=== PATIENT | female | born 2000 | race Caucasian/White ===

== ENCOUNTER 2023-09-09 10:49 | Emergency (ER) | payer OTHER, SELFPAY ==
[2023-09-09 11:12] VITALS: BP 108/74
[2023-09-09 11:35] LABS: % Basophils 0.3 % (0-2); % Eosinophils 0.2 % (0-6); % Immature Granulocytes 0.3 % (0-0.5); % Lymphocytes 17.2 % (20.5-51.1); % Monocytes 6.6 % (1.7-9.3); % Neutrophils 75.4 % (42.2-75.2); Absolute Monocytes 0.4 10^3/uL (0.1-0.6); Absolute Neutrophils 4.3 10^3/uL (1.4-6.5); Hematocrit 37.4 % (37.0-47.0); Hemoglobin 12.1 g/dL (12.0-16.0); Mean Corp Hgb Conc. 32.4 g/dL (33.0-37.0); Mean Corpuscular Hgb 21.5 pg (27.0-31.0); Mean Corpuscular Volume 66.5 fL (81.0-99.0); Mean Platelet Volume 10.8 fL (7.4-10.4); Nucleated Red Blood Cells % 0 %; Platelet Count 161 10^3/uL (130-400); Red Blood Cell Count 5.62 10^6/uL (4.20-5.40); Red Cell Dist. Width 15.8 % (11.5-14.5); White Blood Cell Count 5.7 10^3/uL (4.8-10.8)
[2023-09-09 11:56] LABS: COVID-19 Antigen Negative (Negative)
[2023-09-09 12:32] VITALS: BMI 24.0
[2023-09-09 12:35] LABS: ALT (SGPT) 30 U/L (0-35); AST (SGOT) 34 U/L (14-36); Alkaline Phosphatase 51 U/L (38-126); Blood Urea Nitrogen 15 mg/dl (7-17); Calcium 9.2 mg/dl (8.4-10.2); Carbon Dioxide 20 mmol/L (22-30); Chloride 106 mmol/L (98-107); Estimated Creatinine Clearance 119 ml/min; Glucose 109 mg/dl (70-99); Potassium 3.7 mmol/L (3.5-5.1); Sodium 135 mmol/L (135-145); Total Bilirubin 0.4 mg/dl (0.2-1.3); Total Protein 6.8 g/dl (6.3-8.2); eGFR > 60.00
[2023-09-09 12:52] VITALS: BP 113/76
[2023-09-09 13:00] VITALS: BP 120/82
--- NOTE | 2023-09-09 13:08 | ED.GENMED ---
History of Present Illness
General
Chief Complaint: Abdominal Symptoms
Time Seen by Provider: 09/09/23 12:38
Travel History
Have you had any contact with someone who has COVID-19?: No
Do you have any symptoms of coronavirus? Fever > 100 degrees, chills, cough, shortness of breath, sore throat, loss of taste or smell, muscle aches, or headache?: No
History of Present Illness
History of Present Illness:
23-year-old otherwise healthy female presents to the emergency department for evaluation of intermittent fevers as well as nausea and vomiting and mild cough ongoing for the past 3 days. No hematemesis or diarrhea at this point. Reporting mild
generalized abdominal pain. Denies any associated shortness of breath or chest pain. She is concerned about bilateral leg cramping and generalized weakness making it difficulty to ambulate. She feels dizzy when she ambulates. Has not been able
to tolerate any p.o. fluids this morning
Past History
Past History
ED Past Medical History: None
ED Past Surgical History: None
Social History
Tobacco: Non-smoker
Alcohol: None
Personal: Single
Living: with family
Employment: Student
Family History
Family History: Other (Noncontributory)
Review of Systems
Review of Systems
Allergies reviewed?: Yes
All Other Systems: ROS reviewed and negative except as documented in HPI and ROS
Phy Exam
Physical Exam
Physical Exam:
GEN: Well appearing, NAD, WDWN
Eyes: PERRLA, EOMs intact, no scleral icterus
HENT: NCAT, oral mucosa moist
Lungs: CTAB, no wheezes, rales, rhonchi, normal chest wall excursion
Cardiac: RRR, no M/R/G, no peripheral edema. Radial pulses 2+ bilat
Abdomen: S, NT, ND, NABS, no masses or hepatosplenomegaly
Neuro: AO x 3
MSK: No gross deformity or ecchymosis. No edema. No digital clubbing
Skin: No rashes, petechiae. Normal color, no pallor or jaundice.
Psych: Calm, cooperative, proper hygiene
Course
Orders/Labs/Results
Orders:
Orders
09/09/23 11:23
COVID-19 Antigen Urgent
Source: Nasal Swab
Complete Blood Count/With Diff Urgent
Comprehensive Metabolic Panel Urgent
Creatine Phosphokinase Urgent
Comment: ADD ON
Influenza A+B Rapid Molecular Urgent
REKHA Source: Nasal Swab
Specimen Description:
09/09/23 13:06
0.9% Sodium Chloride 1000 ml [Nss] 1,000 ml IV BOLUS
09/09/23 13:07
Add On- LAB Urgent
Tests Added?: CPK
09/09/23 13:08
Dextrose 5%/0.9%Sodchl 500 ml [D5/0.9% Sodium Chloride] 250 ml IV 250 mls/hr
Abnormal Lab Results
09/09/23
11:23
RBC 5.62 H 10^6/uL
(4.20-5.40)
MCV 66.5 L fL
(81.0-99.0)
MCH 21.5 L pg
(27.0-31.0)
MCHC 32.4 L g/dL
(33.0-37.0)
RDW 15.8 H %
(11.5-14.5)
MPV 10.8 H fL
(7.4-10.4)
Absolute Lymphs (auto) 1.0 L 10^3/uL
(1.2-3.4)
Neutrophils % 75.4 H %
(42.2-75.2)
Lymphocytes % 17.2 L %
(20.5-51.1)
Carbon Dioxide 20 L mmol/L
(22-30)
Glucose 109 H mg/dl
(70-99)
09/09/23 11:23
09/09/23 11:23
Vital Signs
Initial and Last Documented VS:
Initial Vital Signs
Temp Pulse Resp BP Pulse Ox
99.2 F 98 18 108/74 97
09/09/23 11:12 09/09/23 11:12 09/09/23 11:12 09/09/23 11:12 09/09/23 11:12
Last Documented Vital Signs
Temp Pulse Resp BP Pulse Ox
98.5 F 85 22 119/78 96
09/09/23 12:32 09/09/23 15:21 09/09/23 15:21 09/09/23 15:21 09/09/23 13:15
MDM/Problems Addressed
MDM/Problems Addressed:
Patient's labs are reassuring including negative CPK which rules out myositis. She is positive for influenza A. She was rehydrated with 1 L normal saline and 250 mL of D5 normal saline due to mild decrease in bicarbonate and the likelihood for
mild ketosis. Clinically doing well, abdominal exam is benign, no indication for abdominal imaging at this point. Discussed supportive care, will discharge with antiemetics
*Critical Care Note
Total Time (30-74mins, 75-104mins- exclusive of procedures): Not Applicable
ED Attending Note
-
Portions of this chart may have been created with voice recognition software.� Occasional wrong word or��sound alike� substitutions may have occurred due to the inherent limitations of voice recognition software.
Discharge Plan
Departure
Patient Disposition: Home (Routine Discharge)
Date of Disposition: 09/09/23
Time of Disposition: 15:38
Patient with high blood pressure during this ER visit?: No
Discharge Problem:
Influenza A, Nausea & vomiting
Instructions: Nausea and Vomiting, Adult (DC)
Prescriptions:
New
ondansetron 4 mg tablet,disintegrating
4 mg PO TIDPRN PRN (Reason: nausea/vomiting) Qty: 10 0RF
No Action
levonorgestrel-ethinyl estrad [Sronyx] 1 EACH tablet
1 tab PO DAILY
valacyclovir 500 MG tablet
500 mg PO DAILY
Referrals:
Cl Lott MD [Family Provider] -
Stand Alone Forms: Return to Work
Interventions
Interventions:
*Risk Screen - Suicide Last Done: 09/09/23 11:12
*General Assessment Last Done: 09/09/23 11:12
*Neglect/Abuse Screening Last Done: 09/09/23 11:12
ED- Fall Risk Assessment Last Done: 09/09/23 12:32
*ED COVID-19 Vaccine History Last Done: 09/09/23 11:12
UQ-Htxfgo-Ssczauyylt Assessment Last Done: 09/09/23 12:32
Discharge Date and Time
Print Language: SLOVENIAN
[2023-09-09] MEDS: NSS 1000 IV (13:57)
[2023-09-09] MEDS: D5/0.9% SODIUM CHLORIDE 250 IV (13:57)
[2023-09-09 14:42] LABS: Creatine Phosphokinase 68 U/L (30-135)
[2023-09-09 15:21] VITALS: BP 119/78
[2023-09-09 15:42] VITALS: BP 119/78
== END 2023-09-09 15:44 | disposition home or self-care (01) ==
LOC: EMR 10:49
PROVIDERS: Student in an Organized Health Care Education/Training Program; EMERGENCY PHYSICIAN Emergency Medicine; FAMILY PHYSICIAN Family Medicine
DX: J10.1 Influenza due to other identified influenza virus with other respiratory manifestations (principal); R50.9 Fever, unspecified
CPT/HCPCS: 99283; 96360; 80053; 82550; 85025; 87502; 87811

== ENCOUNTER 2024-12-08 23:08 | Emergency (ER) | payer OTHER, SELFPAY ==
[2024-12-08 23:16] VITALS: BP 121/86
[2024-12-09] VITALS (8 sets, daily range): BP systolic 103–135; BP diastolic 65–102
--- NOTE | 2024-12-09 00:55 | ED.GENMED ---
History of Present Illness
<Talia Atwood PA-C - Last Filed: 12/09/24 06:54>
General
Chief Complaint: Abdominal Symptoms
Source: patient
Exam Limitations: none
Time Seen by Provider: 12/09/24 00:53
Nursing documentation reviewed up to this point in time: agreed with
History of Present Illness
History of Present Illness:
Note:
CHIEF COMPLAINT(S)
Ongoing diarrhea for several weeks.
HISTORY OF PRESENT ILLNESS
The patient is a 24-year-old female with a past medical history of anxiety, bipolar disorder, anemia who presents today with ongoing diarrhea persisting for the past few weeks. The patient reports experiencing several episodes daily, accompanied by
occasional rectal pain during defecation but denies any significant abdominal pain. She denies any back pain or flank pain. The patient also reports unintentional weight loss for the past 2 weeks she is not sure how many pounds she lost but she
feels as though her close have been fitting looser. Historically, the patient experienced a similar episode a few years ago, which involved vomiting and was suggested to be related to gastrointestinal issues, potentially exacerbated by COVID-19,
though no definitive diagnosis was established at that time. Recently, she reported difficulty eating and a noted exacerbation of symptoms after consuming certain foods, particularly after eating out, which included consuming a small amount of
vegetables and chips. The patient also experiences nausea and vomiting, which started acutely today, complicating her ability to keep down even fluids. There is no history of recent travel or medication changes that might account for these symptoms.
The patient denies any urinary symptoms, bleeding, dark tarry stools, or recent surgery in the abdomen. There is no significant history of similar gastrointestinal conditions in the immediate family, though there is a family member with a past
suspicion of diverticulitis that was later confirmed as a kidney condition and an uncle who had colon cancer at the age of 40. There is also family history of gluten intolerance.
SOCIAL DETERMINANTS AFFECTING HEALTH
The patient faces dietary challenges attributed to food sensitivities and family history of gluten intolerance
REVIEW OF SYSTEMS
- Gastrointestinal: Ongoing diarrhea with rectal pain, nausea, vomiting, and unintentional weight loss over the last two weeks.
- Appetite: Reported difficulty with dietary intake, exacerbated by certain foods.
- Constitutional: Noted weight loss over the last two weeks.
See HPI
PHYSICAL EXAM
- Nursing notes reviewed and vital signs reviewed.
General: Patient is well appearing and in no acute distress; non-toxic
Skin: Warm and dry, no rashes or lesions
Head: Normocephalic, atraumatic
Eyes: Sclera non-icteric. EOMs intact.
Cardiac: Regular rate and rhythm, no murmurs
Peripheral Vascular: No extremity swelling or edema
Pulm: Normal respiratory effort, no wheezes, rales, or
Abdomen: Mild left-sided abdominal tenderness to palpation abdomen soft, nondistended, no palpable masses, normoactive bowel sounds
Neuro: CN II-XII intact, no focal neurologic deficits.
Psychiatric: Appropriate mood and affect.
PROBLEM LIST
- Acute: Ongoing diarrhea, vomiting, nausea, unintentional weight loss.
PLAN
- Obtain a computed tomography scan to evaluate for causes such as diverticulitis and initial presentation of conditions like ulcerative colitis.
- Collect a stool sample for analysis to rule out resistant bacteria requiring antibiotics (patient was not able to provide stool sample during ER visit)
- Perform laboratory tests to assess electrolyte imbalances due to vomiting.
- Recommend follow-up with a sole inker for possible endoscopic evaluation or further testing.
- Advise dietary modifications upon stabilization to identify potential food sensitivities, considering family history of gluten intolerance.
DIFFERENTIAL DIAGNOSIS
The Differential Diagnosis includes, in no particular order and is not limited to:
1. Infectious colitis
2. Ulcerative colitis
3. Crohn�s disease
4. Irritable bowel syndrome
5. Celiac disease
6. Infectious gastroenteritis
7. Lactose intolerance
8. Pancreatitis
9. Diverticulitis
10. Small intestinal bacterial overgrowth (SIBO)
CHART REVIEW
Reviewed ER physician documentation from 09/09/2023 patient seen for intermittent nausea and vomiting as well as mild coughing, she had unremarkable workup
Reviewed endoscopy report from 10/09 patient had upper endoscopy was found to have hiatal hernia and biopsies were taken and patient was scheduled to have a gastric emptying study
MDM/disposition
The patient is a 24-year-old female with a past medical history of anxiety, bipolar disorder, anemia who presents today with ongoing diarrhea persisting for the past few weeks. Today, she had a sudden acute onset of nausea and vomiting that
persisted throughout the day and she is not able to tolerate the intake of fluids or food. She denies any significant abdominal pain or back pain. She denies any flank pain. She has no urinary symptoms. In the ER, her symptoms were treated
effectively with Zofran and Compazine and IV fluids. She did develop some mild left-sided pain which was treated with Toradol. Due to the length of time that her symptoms persisted, a CT scan was obtained which revealed bilateral acute
pyelonephritis however no evidence of hydronephrosis. This is not consistent with patient's clinical picture. Her urinalysis is negative for infection. She has no white blood cell count. She is now fever. Discussed case with ED attending who
also saw patient and recommended urology consult. Spoke with Dr. Son on-call for urology. Considering patient has no hydronephrosis, has a clean urine, normal functioning normal blood cell count, no indication for admission and recommended
treatment with Toradol as needed since there is no signs of infection in the urine. Based on urology recommendations and patient's persistent diarrhea, will hold off on antibiotics at this time. Discussed close follow-up with GI, information sent
to GI front clerk for further follow-up. Discussed with holding different food groups to see if that would help with her symptoms. Zofran sent to pharmacy. Strict return precautions discussed. Patient stable for discharge
Past History
Finnlt;Talia Atwood PA-C - Last Filed: 12/09/24 06:54>
Past History
ED Past Medical History: None
ED Past Surgical History: None
Social History
Tobacco: Non-smoker
Alcohol: None
Personal: Single
Living: with family
Employment: Student
Family History
Family History: Other (Noncontributory)
Phy Exam
<Talia Atwood PA-C - Last Filed: 12/09/24 06:54>
Physical Exam
Physical Exam:
see hpi
Course
<Talia Atwood PA-C - Last Filed: 12/09/24 06:54>
Orders/Labs/Results
Orders:
Orders
12/08/24 23:29
IV Insert/Care/Rem.- Treatment PRN
Straight cath- Treatment ONCE
Complete Blood Count/With Diff Urgent
Comprehensive Metabolic Panel Urgent
HCG, Serum Qualitative Screen Urgent
Comment: .
Lipase Urgent
Urinalysis Reflex To Culture Urgent
Date Specimen was Collected: 12/08/24
Time Specimen was Collected: 23:29
12/08/24 23:48
Test Result ONCE
12/09/24 01:03
Ondansetron Injectable [Zofran] 4 mg .ROUTE .STK-MED ONE
Ondansetron Injectable [Zofran] 4 mg IV NOW STA
12/09/24 01:05
0.9% Sodium Chloride 1000 ml [Nss] 1,000 ml IV BOLUS
12/09/24 01:17
CT Abd/pelvis W Iv Cont Urgent
Comment:
Reason For Exam: left sided ab pain
12/09/24 02:14
Urine Microscopic Reflex Cult Urgent
12/09/24 02:59
Prochlorperazine [Compazine] 5 mg IV NOW STA
12/09/24 03:04
Ketorolac [Toradol] 15 mg IV NOW STA
Abnormal Lab Results
12/09/24 12/09/24
00:46 02:14
RBC 5.73 H 10^6/uL
(4.20-5.40)
MCV 66.1 L fL
(81.0-99.0)
MCH 21.5 L pg
(27.0-31.0)
MCHC 32.5 L g/dL
(33.0-37.0)
RDW 15.9 H %
(11.5-14.5)
MPV 10.7 H fL
(7.4-10.4)
Absolute Neuts (auto) 8.3 H 10^3/uL
(1.4-6.5)
Neutrophils % 80.7 H %
(42.2-75.2)
Lymphocytes % 12.4 L %
(20.5-51.1)
Chloride 112 H mmol/L
(98-107)
Carbon Dioxide 21 L mmol/L
(22-30)
BUN 18 H mg/dl
(7-17)
Creatinine 1.1 H mg/dL
(0.6-1.0)
Glucose 100 H mg/dl
(70-99)
Urine Ketones 2+ A
(Negative)
Urine Bacteria (Reflex) Few A
(Negative)
Urine Albumin (Reflex) 2+ A
(Neg - Trace)
12/09/24 00:46
12/09/24 00:46
Vital Signs
Initial and Last Documented VS:
Initial Vital Signs
Temp Pulse BP Pulse Ox
98.2 F 84 121/86 100
12/08/24 23:16 12/08/24 23:16 12/08/24 23:16 12/08/24 23:16
Last Documented Vital Signs
Temp Pulse Resp BP Pulse Ox
98.2 F 53 12 120/68 99
12/08/24 23:16 12/09/24 06:15 12/09/24 06:15 12/09/24 06:00 12/09/24 06:15
<León Stern, DO - Last Filed: 12/09/24 05:53>
Orders/Labs/Results
Orders:
Orders
12/08/24 23:29
IV Insert/Care/Rem.- Treatment PRN
Straight cath- Treatment ONCE
Complete Blood Count/With Diff Urgent
Comprehensive Metabolic Panel Urgent
HCG, Serum Qualitative Screen Urgent
Comment: .
Lipase Urgent
Urinalysis Reflex To Culture Urgent
Date Specimen was Collected: 12/08/24
Time Specimen was Collected: 23:29
12/08/24 23:48
Test Result ONCE
12/09/24 01:03
Ondansetron Injectable [Zofran] 4 mg .ROUTE .STK-MED ONE
Ondansetron Injectable [Zofran] 4 mg IV NOW STA
12/09/24 01:05
0.9% Sodium Chloride 1000 ml [Nss] 1,000 ml IV BOLUS
12/09/24 01:17
CT Abd/pelvis W Iv Cont Urgent
Comment:
Reason For Exam: left sided ab pain
12/09/24 02:14
Urine Microscopic Reflex Cult Urgent
12/09/24 02:59
Prochlorperazine [Compazine] 5 mg IV NOW STA
12/09/24 03:04
Ketorolac [Toradol] 15 mg IV NOW STA
Abnormal Lab Results
12/09/24 12/09/24
00:46 02:14
RBC 5.73 H 10^6/uL
(4.20-5.40)
MCV 66.1 L fL
(81.0-99.0)
MCH 21.5 L pg
(27.0-31.0)
MCHC 32.5 L g/dL
(33.0-37.0)
RDW 15.9 H %
(11.5-14.5)
MPV 10.7 H fL
(7.4-10.4)
Absolute Neuts (auto) 8.3 H 10^3/uL
(1.4-6.5)
Neutrophils % 80.7 H %
(42.2-75.2)
Lymphocytes % 12.4 L %
(20.5-51.1)
Chloride 112 H mmol/L
(98-107)
Carbon Dioxide 21 L mmol/L
(22-30)
BUN 18 H mg/dl
(7-17)
Creatinine 1.1 H mg/dL
(0.6-1.0)
Glucose 100 H mg/dl
(70-99)
Urine Ketones 2+ A
(Negative)
Urine Bacteria (Reflex) Few A
(Negative)
Urine Albumin (Reflex) 2+ A
(Neg - Trace)
12/09/24 00:46
12/09/24 00:46
Vital Signs
Initial and Last Documented VS:
Initial Vital Signs
Temp Pulse BP Pulse Ox
98.2 F 84 121/86 100
12/08/24 23:16 12/08/24 23:16 12/08/24 23:16 12/08/24 23:16
Last Documented Vital Signs
Temp Pulse Resp BP Pulse Ox
98.2 F 53 12 120/68 99
12/08/24 23:16 12/09/24 06:15 12/09/24 06:15 12/09/24 06:00 12/09/24 06:15
Finnlt;Talia Atwood PA-C - Last Filed: 12/09/24 06:54>
*Pulse Oximetry
SaO2: 100
Oxygen Mode of Delivery: Room air
Patient hypoxic: no
*Critical Care Note
Total Time (30-74mins, 75-104mins- exclusive of procedures): Not Applicable
ED Attending Note
<Talia Atwood PA-C - Last Filed: 12/09/24 06:54>
-
Portions of this chart may have been created with voice recognition software.� Occasional wrong word or��sound alike� substitutions may have occurred due to the inherent limitations of voice recognition software.
<León Stern DO - Last Filed: 12/09/24 05:53>
ED Attending Note
Patient seen and examined by attending physician: Yes
ED Attending Note:
Pleasant 24-year-old female presents to the emergency department with diarrhea for the last 3 weeks. Had some vomiting today. Patient was seen in conjunction with the PA. I reviewed and agree with her history and treatment plan. I am independent
physical exam patient awake alert and oriented in no acute distress with lying on the bed. We did discuss CT scan findings and lab work. At this time patient will be discharged home. She will follow-up with urology.
Discharge Plan
Departure
Patient Disposition: Home (Routine Discharge)
Date of Disposition: 12/09/24
Time of Disposition: 06:04
Patient with high blood pressure during this ER visit?: No
Condition: Good
Discharge Problem:
Nausea & vomiting, Diarrhea
Instructions: Diarrhea in teens and adults, Nausea and Vomiting, Adult (DC)
Prescriptions:
New
ondansetron HCl 4 mg tablet
4 mg PO Q6H PRN (Reason: nausea and vomiting) Qty: 10 0RF
Referrals:
Rosales Son MD [Active, Urology]
UNKNOWN - PT DOES,NOT KNOW [Family Provider]
Lesly Hebert DO [Active, Gastroenterology] - Call in 1-3 days for appt
Stand Alone Forms: Return to Work
Activity Restrictions/Additional Instructions:
As discussed:
We will hold off on antibiotics at this time. Your urinalysis is normal. You do not have an elevated white blood cell count.
I sent your information to our GI front clerk hotline. You should receive a call to schedule an appointment with gastroenterology within the next few days to address your persistent diarrhea and weight loss. If you do not receive a call, please
call attached number to schedule appointment. In the meantime I recommend making dietary changes and withholding different food groups at a time such as wheat and dairy to see if this helps with your diarrhea.
You can use Zofran as needed for nausea. Please try eating smaller frequent meals rather than large meals at a time.
PLEASE RETURN TO THE EMERGENCY DEPARTMENT IMMEDIATELY SHOULD YOU DEVELOP BURNING WITH URINATION, URINARY FREQUENCY, BLOOD IN YOUR URINE, ABDOMINAL PAIN, FEVERS OR CHILLS, INTRACTABLE NAUSEA OR VOMITING, INABILITY TO TOLERATE ORAL INTAKE, CHEST PAIN,
SHORTNESS OF BREATH, OR ANY OTHER SIGNS OR SYMPTOMS WORRISOME TO YOU
Interventions
Interventions:
*Risk Screen - Suicide Last Done: 12/08/24 23:23
*General Assessment Last Done: 12/08/24 23:23
*Neglect/Abuse Screening Last Done: 12/08/24 23:23
*ED- Fall Risk Assessment Last Done: 12/08/24 23:23
*ED COVID-19 Vaccine History Last Done: 12/08/24 23:23
*Nursing Disposition Last Done: 12/09/24 06:24
JK-Ccyjkt-Wafxykejqs Assessment Last Done: 12/09/24 00:42
Discharge Date and Time
Discharge Date/Time: 12/09/24 06:36
Print Language: TAJIK
[2024-12-09 01:03] LABS: Hematocrit 37.9 % (37.0-47.0); Hemoglobin 12.3 g/dL (12.0-16.0); Mean Corp Hgb Conc. 32.5 g/dL (33.0-37.0); Mean Corpuscular Volume 66.1 fL (81.0-99.0); Nucleated Red Blood Cells % 0 %; Platelet Count 220 10^3/uL (130-400); Red Cell Dist. Width 15.9 % (11.5-14.5)
[2024-12-09] MEDS: ZOFRAN 4 MG IV (01:04)
[2024-12-09] MEDS: NSS 1000 IV (01:05)
[2024-12-09 01:08] LABS: HCG, Serum Qualitative Screen Negative
[2024-12-09 01:16] LABS: ALT (SGPT) 25 U/L (0-35); AST (SGOT) 28 U/L (14-36); Albumin 4.5 g/dl (3.5-5.0); Alkaline Phosphatase 39 U/L (38-126); Blood Urea Nitrogen 18 mg/dl (7-17); Calcium 9.7 mg/dl (8.4-10.2); Carbon Dioxide 21 mmol/L (22-30); Chloride 112 mmol/L (98-107); Glucose 100 mg/dl (70-99); Lipase 35 U/L (23-300); Potassium 3.9 mmol/L (3.5-5.1); Sodium 140 mmol/L (135-145); Total Protein 6.8 g/dl (6.3-8.2); eGFR > 60.00
[2024-12-09 02:48] LABS: Urine Character Clear (Clear)
[2024-12-09] MEDS: COMPAZINE 5 MG IV (03:02)
[2024-12-09] MEDS: TORADOL 15 MG IV (03:06)
[2024-12-09 03:13] LABS: Urine Red Blood Cell None Seen /HPF (0-2); Urine Squamous Cell >30 /LPF (Few)
== END 2024-12-09 06:36 | disposition home or self-care (01) ==
LOC: EMR 23:08
PROVIDERS: EMERGENCY PHYSICIAN Student in an Organized Health Care Education/Training Program
DX: R19.7 Diarrhea, unspecified (principal); F31.9 Bipolar disorder, unspecified; F41.9 Anxiety disorder, unspecified; D64.9 Anemia, unspecified; Z80.0 Family history of malignant neoplasm of digestive organs; Z83.79 Family history of other diseases of the digestive system
CPT/HCPCS: 99284; 96374; 96375; 74177; 80053; 81003; 81015; 83690; 84703; 85025; Q9967

== ENCOUNTER 2025-01-07 06:22 | Day surgery (SDC) | payer OTHER, SELFPAY | END 2025-01-07 12:35 | disposition home or self-care (01) | LOC: GI 06:22 | PROVIDERS: ATTENDING PHYSICIAN Internal Medicine Gastroenterology | DX: K52.9 Noninfective gastroenteritis and colitis, unspecified (principal); R63.4 Abnormal weight loss; R76.8 Other specified abnormal immunological findings in serum; K44.9 Diaphragmatic hernia without obstruction or gangrene; K22.89 Other specified disease of esophagus; D12.2 Benign neoplasm of ascending colon; K22.70 Barrett's esophagus without dysplasia; K31.89 Other diseases of stomach and duodenum; K63.89 Other specified diseases of intestine | CPT/HCPCS: 45385; 45380; 43239; 88305 ==

== ENCOUNTER → 2025-04-28 09:39 | Outpatient (REF) | payer OTHER, SELFPAY | LOC: HWRAD 09:39 | PROVIDERS: ATTENDING PHYSICIAN Physician Assistant Medical | DX: N83.202 Unspecified ovarian cyst, left side (principal) | CPT/HCPCS: 76830; 76856 ==